=== PATIENT | female | born 1980 | race Caucasian/White ===

== ENCOUNTER 2019-03-28 18:00 | Inpatient (IN) | payer OTHER ==
[~2019-03-28] VITALS: Ht 154.9 cm; Wt 49.9 kg
[~2019-03-28 18:00] MED LIST: AUGMENTIN 875875 MG PO; CHROMAGEN FORTE1 TAB PO; LOPID600 M1 PO; MEDROL DOSEPAK4 MG PO; NKHM; POLYTRIM 1000010 M1 OP; PROVERA10 MG PO; VIBRAMYCIN100 MG PO; VICODIN 5/500 505 MG PO; ZITHROMAX Z PA250 MG PO
[2019-03-28 18:02] VITALS: BP 128/90
[2019-03-28 20:09] LABS: BASO # 0.1 10*3/uL (0.0-0.1); BASO % 0.5 % (0.0-1.0); EOS # 0.1 10*3/uL (0.0-0.4); EOS % 0.4 % (1.0-4.0); HEMATOCRIT 49.1 % (37.0-47.0); HEMOGLOBIN 16.8 g/dl (12.0-16.0); LYMPH # 2.4 10*3/uL (1.3-4.4); LYMPH % 12.4 % (27.0-41.0); MEAN CELL VOLUME 91.9 fl (81.0-99.0); MEAN CORPUSCULAR HGB 31.5 pg (27.0-31.0); MEAN CORPUSCULAR HGB CONC 34.2 g/dl (33.0-37.0); MEAN PLATELET VOLUME 9.7 fl (9.6-12.3); MONO # 0.7 10*3/uL (0.1-1.0); MONO % 3.7 % (3.0-9.0); NEUT # 15.8 10*3/uL (2.3-7.9); NEUT % 82.2 % (47.0-73.0); NUCLEATED RED BLOOD CELL 0.1 10*3/uL (0.0-0.0); NUCLEATED RED BLOOD CELL 0.3 % (0.0-0.0); PLATELET COUNT AUTOMATED 334 10*3/uL (130-400); RED BLOOD COUNT 5.34 10*6/uL (4.10-5.10); RED CELL DISTRI WIDTH 13.2 % (0-14.5); WHITE BLOOD COUNT 19.2 10*3/uL (4.8-10.8)
--- NOTE | 2019-03-28 20:23 | NUR ---
lactic @ 2.1 per lab juan m row[facility] notified.
--- NOTE | 2019-03-28 20:24 | NUR ---
PT PROVIDED LUNCH BOX AN ADDITIONAL FLUIDS REQUESTED,SAFETY PRECAUTIONS INTACT AND CALL LIGHT WITHIN REACH,FAMILY @ BEDSIDE.
[2019-03-28 21:06] VITALS: BP 133/84
[2019-03-28 21:18] LABS: BILIRUBIN NEGATIVE (NEGATIVE); BLOOD 1+ (NEGATIVE); CLARITY CLOUDY (CLEAR); COLOR YELLOW (YELLOW); GLUCOSE NEGATIVE (NEGATIVE); KETONE TRACE (NEGATIVE); LEUKO ESTERASE NEGATIVE (NEGATIVE); NITRITE NEGATIVE (NEGATIVE); SPECIFIC GRAVITY 1.015 (1.005-1.030); UROBILINOGEN 0.2 E.U./dl (0.2-1.0)
[2019-03-28 21:25] LABS: EPITHELIAL CELLS 31-40
[2019-03-28 21:26] LABS: BACTERIA TRACE
--- NOTE | 2019-03-28 21:31 | NUR ---
INFLUENZA SWAB COLLECTED, LABELED AND SENT TO LAB BY JACKELYN HU.
[2019-03-28 21:47] LABS: ALBUMIN 3.4 gm/dl (3.1-4.5); ALKALINE PHOSPHATASE 71 U/L (45-117); BUN 7 mg/dl (7-24); CHLORIDE 105 mmol/L (98-107); CREATININE 0.66 mg/dL (0.55-1.02); POTASSIUM 4.3 mmol/L (3.5-5.1); SGOT/AST 24 IU/L (3-35); SGPT/ALT 15 U/L (12-78); SODIUM 137 mmol/L (136-145); TOTAL PROTEIN 7.4 gm/dL (6.4-8.2)
[2019-03-28 22:14] LABS: INTERNATIONAL NORM RATIO 0.9 (2.0-3.5)
[2019-03-29 06:19] LABS: HEMATOCRIT 41.2 % (37.0-47.0); HEMOGLOBIN 14.8 g/dl (12.0-16.0); MEAN CELL VOLUME 93.6 fl (81.0-99.0); MEAN CORPUSCULAR HGB 33.6 pg (27.0-31.0); MEAN CORPUSCULAR HGB CONC 35.9 g/dl (33.0-37.0); MEAN PLATELET VOLUME 9.7 fl (9.6-12.3); PLATELET COUNT AUTOMATED 277 10*3/uL (130-400); RED CELL DISTRI WIDTH 12.8 % (0-14.5); WHITE BLOOD COUNT 14.3 10*3/uL (4.8-10.8)
[2019-03-29 06:34] LABS: ALBUMIN 3.1 gm/dl (3.1-4.5); ALKALINE PHOSPHATASE 68 U/L (45-117); BUN 9 mg/dl (7-24); CHLORIDE 109 mmol/L (98-107); CREATININE 0.69 mg/dL (0.55-1.02); PHOSPHOROUS 2.3 mg/dL (2.5-4.9); POTASSIUM 4.2 mmol/L (3.5-5.1); SGOT/AST 19 IU/L (3-35); SGPT/ALT 19 U/L (12-78); SODIUM 141 mmol/L (136-145); TOTAL PROTEIN 7.2 gm/dL (6.4-8.2)
[2019-03-29 06:38] LABS: CHOLESTEROL 223 mg/dL (<200); HDL CHOLESTEROL 16 mg/dl (40-60); TRIGLYCERIDES 1868 mg/dl (<150)
[2019-03-29 06:45] LABS: THYROID STIM HORMONE (HS) 0.408 uIU/ml (0.358-4.75)
[2019-03-29 06:49] VITALS: BP 117/61
[2019-03-29 06:57] LABS: PLATELET SUFFICIENCY NORMAL (NORMAL); TOTAL CELLS COUNTED 100 #CELLS
--- NOTE | 2019-03-29 07:10 | NUR ---
report received from tire repairman rn.
[2019-03-29 07:43] VITALS: BP 134/79
--- NOTE | 2019-03-29 08:07 | NUR ---
BED ASSIGNED FLOOR UNABLE TO ACCEPT PT AT THIS TIME. AWAITING RETURN CALL FOR ADMISSION.
[2019-03-29 08:18] LABS: VITAMIN D, 25-HYDROXY 12.7 ng/mL (30-100)
--- NOTE | 2019-03-29 09:00 | NUR ---
Accounting Officer in to talk to patient. Patient states lives at home with alone. There are few steps in the home. Physician: yue bonilla Pharmacy: [facility] health services: none Patient's level of ADLs: INDEPENDENT Patient has working utilities: all working DME: none Follow-up physician's appointment after d/c: will be made by hospitalist nurse director upon discharge Does patient want to access PORTAL?: no Discharge plan discussed with patient, she lives at home alone, she is independent in adls and ambulation, works, drives, she will be returing home when able and denies any home needs. BERNABE RICK
[2019-03-29 09:30] VITALS: BP 142/78
--- NOTE | 2019-03-29 09:59 | NUR ---
A 38, admitted to , under the services of LORRI Childs DO with a diagnosis of SEVERE SEPSIS. Chief complaint is COUGH, CONGESTION, CHEST PAIN. Patient arrived via wheel chair from ER. Monitor applied. Initial assessment completed. Vital signs taken and recorded. LORRI CHILDS DO notified of admission to the unit. Orders received. See assessment for past medical history, medications and allergies. Patient and/or family oriented to unit. [facility] Clothing/patient valuable form completed. ROSE LEARY
[2019-03-29 12:00] VITALS: BP 138/77
--- NOTE | 2019-03-29 15:30 | NUR ---
ASSUMED CARE FOR THIS PT AT THIS TIME. VISITORS AT BEDSIDE. CALL LIGHT IN REACH.
[2019-03-29 16:00] VITALS: BP 120/64; BP 138/82
--- NOTE | 2019-03-29 19:59 | NUR ---
DR. SPANGLER NOTIFIED OF PT'S ELEVATED TRIGLYCERIDES. STATES THEY ARE AWARE AND BELIEVE IT IS FAMILIAL HYPERCHOLESTEROLEMIA.
[2019-03-29 20:00] VITALS: BP 147/83
--- NOTE | 2019-03-29 22:17 | NUR ---
PT MEDICATED W/ZOFRAN FOR C/O NAUSEA. WILL MONITOR FOR EFFECTIVENESS.
[2019-03-30] VITALS: BP 128/71
--- NOTE | 2019-03-30 | NUR ---
RESTING IN BED WITH EYES CLOSED. IV FLUIDS INFUSING ORDERED. NO DISTRESS NOTED; CALL LIGHT WITHIN REACH.
--- NOTE | 2019-03-30 06:00 | NUR ---
AROUSES EASILY; VOICES NO C/O. CALL LIGHT WITHIN REACH.
[2019-03-30 06:24] LABS: BASO # 0.1 10*3/uL (0.0-0.1); BASO % 0.3 % (0.0-1.0); HEMATOCRIT 40.3 % (37.0-47.0); HEMOGLOBIN 13.5 g/dl (12.0-16.0); LYMPH % 9.6 % (27.0-41.0); MEAN CORPUSCULAR HGB 32.5 pg (27.0-31.0); MEAN CORPUSCULAR HGB CONC 33.5 g/dl (33.0-37.0); MEAN PLATELET VOLUME 9.8 fl (9.6-12.3); MONO # 0.8 10*3/uL (0.1-1.0); MONO % 3.8 % (3.0-9.0); NEUT % 85.1 % (47.0-73.0); PLATELET COUNT AUTOMATED 284 10*3/uL (130-400); RED BLOOD COUNT 4.16 10*6/uL (4.10-5.10); RED CELL DISTRI WIDTH 13.2 % (0-14.5); WHITE BLOOD COUNT 21.1 10*3/uL (4.8-10.8)
[2019-03-30 06:29] LABS: BUN 9 mg/dl (7-24); CHLORIDE 112 mmol/L (98-107); CREATININE 0.53 mg/dL (0.55-1.02); POTASSIUM 4.4 mmol/L (3.5-5.1); SODIUM 143 mmol/L (136-145)
[2019-03-30 06:49] LABS: MEAN CELL VOLUME 96.9 fl (81.0-99.0)
[2019-03-30 08:30] VITALS: BP 124/80
--- NOTE | 2019-03-30 09:00 | NUR ---
case management visits with patient, she is hoping to return home today, she denies any home needs
[2019-03-30 09:34] VITALS: BP 124/82
--- NOTE | 2019-03-30 11:55 | NUR ---
patient instructed on flutter valve.
[2019-03-30 12:00] VITALS: BP 113/65
[2019-03-30 16:00] VITALS: BP 135/82
[2019-03-30 20:00] VITALS: BP 129/68
--- NOTE | 2019-03-30 22:54 | NUR ---
PRN TYLENOL ADMINISTERED FOR PT C/O H/A RATED A 4/10 ON THE PAIN SCALE. WILL CONTINUE TO MONITOR AND REASSESS. NO OTHER COMPLAINTS AT THIS TIME. CALL LIGHT IN REACH.
[2019-03-31] VITALS: BP 136/83
[2019-03-31 06:35] LABS: HEMATOCRIT 40.6 % (37.0-47.0); MEAN CORPUSCULAR HGB 32.3 pg (27.0-31.0); MEAN CORPUSCULAR HGB CONC 34.5 g/dl (33.0-37.0); MEAN PLATELET VOLUME 9.2 fl (9.6-12.3); PLATELET COUNT AUTOMATED 292 10*3/uL (130-400); RED BLOOD COUNT 4.33 10*6/uL (4.10-5.10); RED CELL DISTRI WIDTH 12.5 % (0-14.5)
[2019-03-31 06:42] LABS: MEAN CELL VOLUME 93.8 fl (81.0-99.0)
[2019-03-31 07:12] LABS: PLATELET SUFFICIENCY NORMAL (NORMAL); TOTAL CELLS COUNTED 100 #CELLS
--- NOTE | 2019-03-31 08:30 | NUR ---
Patient resting quietly with no c/o discomfort. Respirations easy and regular. Vital signs stable. No overt distress. TARUUS SINGH R
[2019-03-31] MEDS ORDERED: DOXYCYCLINE100 M3 PO (09:53)
[2019-03-31] MEDS ORDERED: VITAMIN D5000 UNI1 PO (09:53)
[2019-03-31] MEDS ORDERED: PREDNISONE10 MG PO (09:53)
[2019-03-31] MEDS ORDERED: NICODERM CQ1 EAC2 T (11:23)
--- NOTE | 2019-03-31 11:39 | NUR ---
Discharge instructions reviewed with patient/family. Patient receptive and verbalizes understanding. Follow-up care arranged. Written instructions given to patient/family. TAURUS SINGH
== END 2019-03-31 11:39 | disposition home or self-care (01) | DRG 871 ==
LOC: ED 18:00 → 4E 20:56 → EDHOLD 20:56 → 4E 03-29 08:43
PROVIDERS: Internal Medicine; Physician Assistant; Registered Nurse; Student in an Organized Health Care Education/Training Program; ADMIT Internal Medicine
DX: A41.9 Sepsis, unspecified organism (principal); J18.9 Pneumonia, unspecified organism; E87.2 Acidosis; R65.20 Severe sepsis without septic shock; N76.0 Acute vaginitis; R73.9 Hyperglycemia, unspecified; D72.810 Lymphocytopenia; E78.1 Pure hyperglyceridemia; B96.89 Other specified bacterial agents as the cause of diseases classified elsewhere; F17.210 Nicotine dependence, cigarettes, uncomplicated; Z71.6 Tobacco abuse counseling; Z79.899 Other long term (current) drug therapy; Z83.3 Family history of diabetes mellitus; Z80.8 Family history of malignant neoplasm of other organs or systems

== ENCOUNTER 2020-06-07 11:33 | Emergency (ER) | payer OTHER ==
[~2020-06-07] VITALS: Ht 154.9 cm; Wt 54.4 kg
[~2020-06-07 11:33] MED LIST changes: +DOXYCYCLINE100 M3 PO; +NICODERM CQ1 EAC2 T; +PREDNISONE10 MG PO; +VITAMIN D5000 UNI1 PO
[2020-06-07] MEDS ORDERED: FENOFIBRATE160 MG PO (11:47)
[2020-06-07] MEDS ORDERED: OMEGA-3-ACID ETH1 GM PO (11:48)
[2020-06-07 11:53] VITALS: BP 142/78
== END 2020-06-07 12:52 | disposition home or self-care (01) ==
LOC: ED 11:33
DX: S61.211A Laceration without foreign body of left index finger without damage to nail, initial encounter (principal); F17.200 Nicotine dependence, unspecified, uncomplicated; Z79.899 Other long term (current) drug therapy; X58.XXXA Exposure to other specified factors, initial encounter; Y93.89 Activity, other specified; Y92.89 Other specified places as the place of occurrence of the external cause; Y99.8 Other external cause status

== ENCOUNTER 2020-07-24 17:23 | Inpatient (IN) | payer OTHER ==
[~2020-07-24] VITALS: Ht 155 cm; Wt 54.4 kg
[~2020-07-24 17:23] MED LIST changes: +FENOFIBRATE160 MG PO; +OMEGA-3-ACID ETH1 GM PO
[2020-07-24 17:31] VITALS: BP 124/85
[2020-07-24 19:07] LABS: ALBUMIN 3.7 gm/dl (3.1-4.5); ALKALINE PHOSPHATASE 75 U/L (45-117); BUN 9 mg/dl (7-24); CHLORIDE 106 mmol/L (98-107); LIPASE 460 U/L (73-393); SODIUM 136 mmol/L (136-145); TOTAL PROTEIN 8.4 gm/dL (6.4-8.2)
[2020-07-24 19:10] LABS: MEAN CORPUSCULAR HGB CONC 34.8 g/dl (33.0-37.0); MEAN PLATELET VOLUME 10.2 fl (9.6-12.3)
[2020-07-24 19:16] LABS: HEMATOCRIT 43.7 % (37.0-47.0); MEAN CELL VOLUME 89.2 fl (81.0-99.0); NUCLEATED RED BLOOD CELL 0.3 10*3/uL (0.0-0.0); NUCLEATED RED BLOOD CELL 1.7 % (0.0-0.0); PLATELET COUNT AUTOMATED 312 10*3/uL (130-400); RED CELL DISTRI WIDTH 13.2 % (0-14.5); WHITE BLOOD COUNT 16.7 10*3/uL (4.8-10.8)
[2020-07-24 19:17] LABS: SGOT/AST 60 IU/L (3-35); SGPT/ALT 29 U/L (12-78)
[2020-07-24 19:33] LABS: TOTAL CELLS COUNTED 100 #CELLS
[2020-07-24 19:34] LABS: PLATELET SUFFICIENCY NORMAL (NORMAL)
[2020-07-24 21:44] LABS: BILIRUBIN Negative (Negative); BLOOD Negative (Negative); CLARITY Clear (Clear); COLOR Yellow (Yellow); GLUCOSE Negative (Negative); KETONE Trace (Negative); LEUKO ESTERASE Negative (Negative); NITRITE Negative (Negative); PH 7.5 (4.5-8.0); SPECIFIC GRAVITY >= 1.030 (1.001-1.030); UROBILINOGEN 0.2 E.U./dl (0.0-1.0)
[2020-07-24 21:55] VITALS: BP 103/66
[2020-07-24 21:56] LABS: EPITHELIAL CELLS 21-30; RBC 0-2 rbc/hpf (0-2); WBC 0-2 wbc/hpf (0-5)
[2020-07-24 21:57] LABS: BACTERIA TRACE
[2020-07-24 22:10] VITALS: BP 111/68
--- NOTE | 2020-07-24 22:20 | NUR ---
PT ARRIVED TO THE FLOOR AT 2210HRS, CHERY REPORT WAS TAKEN FROM ASUNCION. PT ORIENTATED TO ROOM AND CALL LIGHT.
--- NOTE | 2020-07-25 02:45 | NUR ---
24 HR chart check completed.
[2020-07-25 06:37] LABS: BASO # 0.1 10*3/uL (0.0-0.1); BASO % 0.5 % (0.0-1.0); EOS # 0.2 10*3/uL (0.0-0.4); EOS % 1.8 % (1.0-4.0); HEMATOCRIT 34.2 % (37.0-47.0); LYMPH # 2.2 10*3/uL (1.3-4.4); LYMPH % 17.7 % (27.0-41.0); MEAN CELL VOLUME 91.4 fl (81.0-99.0); MEAN CORPUSCULAR HGB 32.9 pg (27.0-31.0); MEAN PLATELET VOLUME 9.5 fl (9.6-12.3); MONO # 0.6 10*3/uL (0.1-1.0); MONO % 4.6 % (3.0-9.0); NEUT # 9.2 10*3/uL (2.3-7.9); PLATELET COUNT AUTOMATED 220 10*3/uL (130-400); RED BLOOD COUNT 3.74 10*6/uL (4.10-5.10); WHITE BLOOD COUNT 12.3 10*3/uL (4.8-10.8)
--- NOTE | 2020-07-25 06:40 | NUR ---
PT REPORTS ABD PAIN 6/10 IN SEVERITY. MEDICATED PER THE MAR
[2020-07-25 07:09] LABS: ALBUMIN 2.8 gm/dl (3.1-4.5); ALKALINE PHOSPHATASE 56 U/L (45-117); BUN 6 mg/dl (7-24); CHLORIDE 112 mmol/L (98-107); CREATININE 0.64 mg/dL (0.55-1.02); SGOT/AST 8 IU/L (3-35); SGPT/ALT 22 U/L (12-78); SODIUM 141 mmol/L (136-145); TOTAL PROTEIN 6.1 gm/dL (6.4-8.2)
[2020-07-25 07:15] LABS: VITAMIN D, 25-HYDROXY 7.5 ng/mL (30-100)
[2020-07-25 07:18] LABS: POTASSIUM 3.2 mmol/L (3.5-5.1)
[2020-07-25 07:19] LABS: CHOLESTEROL 205 mg/dL (<200); HDL CHOLESTEROL 21 mg/dl (40-60)
[2020-07-25 07:20] LABS: TRIGLYCERIDES 1468 mg/dl (<150)
[2020-07-25 07:21] LABS: THYROID STIM HORMONE (HS) 0.273 uIU/ml (0.358-4.75)
[2020-07-25 07:25] LABS: INTERNATIONAL NORM RATIO 0.9 (2.0-3.5)
[2020-07-25 07:27] LABS: ACT PARTIAL THROMBO TIME 29.4 SECONDS (20.0-32.1)
[2020-07-25 08:00] VITALS: BP 98/47
--- NOTE | 2020-07-25 08:18 | NUR ---
Pt taken off floor for ultrasound.
--- NOTE | 2020-07-25 08:57 | NUR ---
Medicated with morphine iv per prn order for complaints of abdominal pain.
--- NOTE | 2020-07-25 09:40 | NUR ---
Pt is resting comfortably. States morphine helped pain.
--- NOTE | 2020-07-25 09:42 | NUR ---
SUPERVISOR POWDERED METAL-S in to talk to patient. Patient states lives at home alone. There are a few steps in the home. Physician: does not have one Pharmacy: [facility] health services: no Patient's level of ADLs: INDEPENDENT Patient has working utilities: Yes DME: no Follow-up physician's appointment after d/c: Will need Does patient want to access PORTAL?: Yes Discharge plan: Patient lives independently and is currently employed. Patient states that she was admitted to [facility] in 05/06 due to pancreatitis. At that time, she discharged to home without any needs. Pt anticipates the same upon current discharge. Discussed pt's need to become established with a PCP. Offered resident clinic to pt as an option. Will plan to meet with pt again to provide additional list of local PCPs. BREE CALLEJAS
--- NOTE | 2020-07-25 10:11 | NUR ---
storage garage attendant dc per order.
[2020-07-25 12:00] VITALS: BP 92/55
--- NOTE | 2020-07-25 12:01 | NUR ---
Nutritional Support Services Note; Instructed pt on diet for pancreatitis and hypertryglycermia. Low fat diet copy given. All questions were answered. She has a very good understanding of the diet and is very eager to comply. She asked appropriate questions. Encouraged follow up if needed. Monse Stubbs Rdn Ld
--- NOTE | 2020-07-25 15:32 | NUR ---
Medicated with norco per prn order for complaints of abdominal pain.
[2020-07-25 16:00] VITALS: BP 100/59
[2020-07-25 20:00] VITALS: BP 107/56
--- NOTE | 2020-07-25 21:14 | NUR ---
PATIENT LAYING IN BED. C/O ABDOMINAL PAIN BUT DENIES NEED FOR PAIN MEDICATION. RATES 5/10. RESPIRATIONS EASY, NON LABORED. NO OTHER COMPLAINTS VOICED AT THIS TIME. IV FLUIDS INFUSING. BED IN LOWEST POSITION,CALL LIGHT WITHIN REACH. WILL CONTINUE TO MONITOR.
--- NOTE | 2020-07-25 21:56 | NUR ---
MEDICATED WITH PRN NORCO FOR CO ABDOMINAL PAIN AND PRN ZOFRAN FOR CO NAUSEA. NURSE TO ASSESS EFFECTIVENESS.
--- NOTE | 2020-07-25 22:56 | NUR ---
PER PATIENT CONY AND STORM EFFECTIVE.
--- NOTE | 2020-07-25 23:00 | NUR ---
ASSUMED CARE OF PATIENT AT THIS TIME. DENIES ANY NEEDS. STATES NO NAUSEA AT THIS TIME AND PAIN IS CONTROLLED. ASSESSMENT COMPLETE. RESPS WNL. CALL LIGHT WITHIN REACH.
[2020-07-26] VITALS: BP 105/54
--- NOTE | 2020-07-26 00:04 | NUR ---
24 HR chart check completed.
--- NOTE | 2020-07-26 01:31 | NUR ---
PRN RESTORIL GIVEN FOR CO TROUBLE SLEEPING.
[2020-07-26 06:59] LABS: BASO # 0.1 10*3/uL (0.0-0.1); BASO % 0.9 % (0.0-1.0); EOS # 0.4 10*3/uL (0.0-0.4); EOS % 4.9 % (1.0-4.0); HEMATOCRIT 34.7 % (37.0-47.0); LYMPH # 2.3 10*3/uL (1.3-4.4); LYMPH % 30.6 % (27.0-41.0); MEAN CELL VOLUME 92.3 fl (81.0-99.0); MEAN CORPUSCULAR HGB 30.9 pg (27.0-31.0); MEAN CORPUSCULAR HGB CONC 33.4 g/dl (33.0-37.0); MEAN PLATELET VOLUME 9.8 fl (9.6-12.3); MONO # 0.4 10*3/uL (0.1-1.0); MONO % 5.8 % (3.0-9.0); NEUT # 4.3 10*3/uL (2.3-7.9); NEUT % 57.4 % (47.0-73.0); PLATELET COUNT AUTOMATED 204 10*3/uL (130-400); RED BLOOD COUNT 3.76 10*6/uL (4.10-5.10); RED CELL DISTRI WIDTH 12.9 % (0-14.5); WHITE BLOOD COUNT 7.5 10*3/uL (4.8-10.8)
[2020-07-26 07:10] LABS: BUN 3 mg/dl (7-24); CHLORIDE 112 mmol/L (98-107); CREATININE 0.49 mg/dL (0.55-1.02); POTASSIUM 3.5 mmol/L (3.5-5.1); SODIUM 140 mmol/L (136-145)
[2020-07-26 07:55] VITALS: BP 88/47
--- NOTE | 2020-07-26 09:26 | NUR ---
Medicated with norco per prn order for complaints of abdominal pain. Rates pain 4/10.
[2020-07-26 10:10] VITALS: BP 112/78
--- NOTE | 2020-07-26 10:10 | NUR ---
Dr. Vieyra requested a repeat bp result of 112/78 manual.
--- NOTE | 2020-07-26 10:20 | NUR ---
States that pain medication effective.
[2020-07-26 12:00] VITALS: BP 105/58
[2020-07-26 16:00] VITALS: BP 106/66
--- NOTE | 2020-07-26 17:56 | NUR ---
Medicated with vicodin per prn order for complaints of abdominal pain. States pain is across entire abdomen rated 6/10.
[2020-07-26 20:00] VITALS: BP 110/63
--- NOTE | 2020-07-26 23:20 | NUR ---
2318 PT C/O ABD DISCOMFORT/GENERALIZED DISCOMFORT AND SLEEP. 4/10 PAIN SCALE. ADMINISTERED PRN NORCO AND RESTORIL PER STANDING ORDER.
[2020-07-27] VITALS: BP 133/71
--- NOTE | 2020-07-27 01:45 | NUR ---
CLIENT PRN NORCO WAS EFFECTIVE. NO S/S DISCOMFORT AT THIS TIME.
[2020-07-27 06:34] LABS: BASO # 0.1 10*3/uL (0.0-0.1); BASO % 1.3 % (0.0-1.0); EOS # 0.3 10*3/uL (0.0-0.4); EOS % 4.6 % (1.0-4.0); HEMATOCRIT 33.3 % (37.0-47.0); LYMPH # 2.7 10*3/uL (1.3-4.4); LYMPH % 43.9 % (27.0-41.0); MEAN CORPUSCULAR HGB CONC 33.3 g/dl (33.0-37.0); MEAN PLATELET VOLUME 9.4 fl (9.6-12.3); MONO # 0.4 10*3/uL (0.1-1.0); MONO % 5.9 % (3.0-9.0); NEUT # 2.7 10*3/uL (2.3-7.9); PLATELET COUNT AUTOMATED 198 10*3/uL (130-400); RED BLOOD COUNT 3.58 10*6/uL (4.10-5.10); RED CELL DISTRI WIDTH 12.4 % (0-14.5); WHITE BLOOD COUNT 6.1 10*3/uL (4.8-10.8)
[2020-07-27 06:47] LABS: BUN 5 mg/dl (7-24); CHLORIDE 112 mmol/L (98-107); CREATININE 0.48 mg/dL (0.55-1.02); POTASSIUM 3.6 mmol/L (3.5-5.1); SODIUM 143 mmol/L (136-145)
[2020-07-27 08:00] VITALS: BP 113/64
[2020-07-27] MEDS ORDERED: PHARMASSURE V500 MCG PO (11:31)
[2020-07-27] MEDS ORDERED: VITAMIN D350 MC2 PO (11:31)
[2020-07-27] MEDS ORDERED: LIPITOR20 MG PO (11:31)
[2020-07-27] MEDS ORDERED: OMEGA-3-ACID ETH1 GM PO (11:31)
[2020-07-27] MEDS ORDERED: FENOFIBRATE160 MG PO (11:31)
[2020-07-27 12:00] VITALS: BP 130/76
== END 2020-07-27 13:30 | disposition home or self-care (01) | DRG 871 ==
LOC: ED 17:23 → 5E 21:10 → EDHOLD 21:10 → 5E 21:49
PROVIDERS: Family Medicine; Hospitalist; Physician Assistant; ADMIT Internal Medicine; ATTEND Internal Medicine
DX: A41.9 Sepsis, unspecified organism (principal); K85.90 Acute pancreatitis without necrosis or infection, unspecified; E78.1 Pure hyperglyceridemia; F17.210 Nicotine dependence, cigarettes, uncomplicated; K29.70 Gastritis, unspecified, without bleeding; E78.00 Pure hypercholesterolemia, unspecified; R74.01 Elevation of levels of liver transaminase levels; Z79.899 Other long term (current) drug therapy; Z71.6 Tobacco abuse counseling; Z83.3 Family history of diabetes mellitus

== ENCOUNTER → 2020-08-18 | Outpatient (CLI) | payer OTHER ==
[~2020-08-18] MED LIST changes: +LIPITOR20 MG PO; +PHARMASSURE V500 MCG PO; +VITAMIN D350 MC2 PO
== END | disposition home or self-care (01) ==
LOC: US 14:25
PROVIDERS: ATTEND Nurse Practitioner Women's Health
DX: N83.202 Unspecified ovarian cyst, left side (principal); N88.8 Other specified noninflammatory disorders of cervix uteri

== ENCOUNTER → 2020-11-26 | Outpatient (CLI) | payer OTHER | END | disposition home or self-care (01) | LOC: US 15:22 | PROVIDERS: ATTEND Nurse Practitioner Women's Health | DX: N88.8 Other specified noninflammatory disorders of cervix uteri (principal) ==

== ENCOUNTER 2021-09-21 17:07 | Emergency (ER) | payer OTHER ==
[~2021-09-21] VITALS: Ht 154.9 cm; Wt 59.0 kg
[2021-09-21 17:28] VITALS: BP 140/82
[2021-09-21 17:53] LABS: BILIRUBIN Negative (Negative); BLOOD Negative (Negative); CLARITY Clear (Clear); COLOR Yellow (Yellow); GLUCOSE Negative (Negative); KETONE Negative (Negative); LEUKO ESTERASE Negative (Negative); NITRITE Negative (Negative); PH 5.5 (4.5-8.0); SPECIFIC GRAVITY <= 1.005 (1.001-1.030); UROBILINOGEN 0.2 E.U./dl (0.0-1.0)
[2021-09-21 18:14] LABS: BACTERIA TRACE; EPITHELIAL CELLS 31-40; RBC 0-2 rbc/hpf (0-2); WBC 0-2 wbc/hpf (0-5)
== END 2021-09-21 19:20 | disposition home or self-care (01) ==
LOC: ED 17:07
PROVIDERS: Emergency Medicine
DX: R39.11 Hesitancy of micturition (principal); F17.200 Nicotine dependence, unspecified, uncomplicated; Z79.899 Other long term (current) drug therapy

== ENCOUNTER 2023-07-23 13:39 | Emergency (ER) | payer OTHER ==
[~2023-07-23] VITALS: Ht 154.9 cm; Wt 59.0 kg
[2023-07-23 13:46] VITALS: BP 140/87
[2023-07-23] MEDS ORDERED: PROZAC40 M1 PO (13:47)
[2023-07-23] MEDS ORDERED: MUSCLE RELAXER (13:48)
[2023-07-23] MEDS ORDERED: CYCLOBENZAPRINE5 M3 PO (15:11)
== END 2023-07-23 15:12 | disposition home or self-care (01) ==
LOC: ED 13:39
DX: M54.31 Sciatica, right side (principal); M19.90 Unspecified osteoarthritis, unspecified site; Z98.890 Other specified postprocedural states; F17.200 Nicotine dependence, unspecified, uncomplicated

== ENCOUNTER 2023-10-08 19:02 | Emergency (ER) | payer OTHER ==
[~2023-10-08] VITALS: Ht 154.9 cm; Wt 59.0 kg
[~2023-10-08 19:02] MED LIST changes: +CYCLOBENZAPRINE5 M3 PO; +MUSCLE RELAXER; +PROZAC40 M1 PO
[2023-10-08 19:10] VITALS: BP 150/68
[2023-10-08] MEDS ORDERED: ACETAMINOPHEN 325 MG TAB PO ONE (19:25)
[2023-10-08 19:46] LABS: MEAN CELL VOLUME 91.6 fl (81.0-99.0); MEAN PLATELET VOLUME 8.8 fl (9.6-12.3); PLATELET COUNT AUTOMATED 279 10*3/uL (130-400); RED BLOOD COUNT 4.04 10*6/uL (4.10-5.10); RED CELL DISTRI WIDTH 12.3 % (0-14.5)
[2023-10-08 20:18] LABS: BILIRUBIN Negative (Negative); BLOOD Trace-Intact (Negative); CLARITY Clear (Clear); COLOR Yellow (Yellow); GLUCOSE Negative (Negative); KETONE Trace (Negative); LEUKO ESTERASE Negative (Negative); NITRITE Negative (Negative); PH 5.5 (4.5-8.0); SPECIFIC GRAVITY 1.025 (1.001-1.030)
[2023-10-08 20:25] LABS: URINE AMPHETAMINES Negative (1000ng/ml); URINE BARBITURATES Negative (200ng/ml); URINE BENZODIAZEPINES Negative (200ng/ml); URINE CANNABINOIDS (THC) Negative (50ng/ml); URINE COCAINE Negative (300ng/ml); URINE METHADONE Negative (300ng/ml); URINE OPIATES Positive (300ng/ml); URINE PHENCYCLIDINE Negative (25ng/ml)
[2023-10-08 21:29] LABS: BACTERIA TRACE; MUCOUS 1+
[2023-10-08 21:39] LABS: ALKALINE PHOSPHATASE 65 U/L (46-116); LIPASE 70 U/L (12-53); POTASSIUM 3.6 mmol/L (3.4-5.1); SGPT/ALT 41 U/L (5-49); TOTAL PROTEIN 6.1 gm/dL (6.0-8.0)
[2023-10-08 22:03] LABS: MANUAL DIFF REFLEX YES
[2023-10-08 22:04] LABS: MEAN CORPUSCULAR HGB CONC 34.1 g/dl (33.0-37.0)
[2023-10-08 22:05] LABS: MEAN CORPUSCULAR HGB 31.2 pg (27.0-31.0)
[2023-10-08 22:15] LABS: BUN < 10 mg/dl (9-23)
[2023-10-08 22:27] LABS: ATYPICAL LYMPHS 1 % (0-0); BASOPHILS 2 % (0-1); PLATELET SUFFICIENCY NORMAL (NORMAL); TOTAL CELLS COUNTED 100 #CELLS
[2023-10-08 22:28] LABS: ROULEAUX SLIGHT
[2023-10-08] MEDS ORDERED: MIRALAX POWDER17 G1 PO (22:52)
== END 2023-10-08 23:12 | disposition home or self-care (01) ==
LOC: ED 19:02
PROVIDERS: Internal Medicine
DX: K59.00 Constipation, unspecified (principal); R11.2 Nausea with vomiting, unspecified; F17.200 Nicotine dependence, unspecified, uncomplicated; Z79.899 Other long term (current) drug therapy

== ENCOUNTER → 2023-10-26 | Outpatient (CLI) | payer OTHER ==
[~2023-10-26] MED LIST changes: +MIRALAX POWDER17 G1 PO
== END | disposition home or self-care (01) ==
LOC: MRI 00:21
PROVIDERS: ATTEND Family Medicine
DX: M51.37 Other intervertebral disc degeneration, lumbosacral region (principal); M54.41 Lumbago with sciatica, right side; M48.07 Spinal stenosis, lumbosacral region; M47.817 Spondylosis without myelopathy or radiculopathy, lumbosacral region; M25.551 Pain in right hip

== ENCOUNTER 2024-12-11 22:29 | Emergency (ER) | payer OTHER ==
[~2024-12-11] VITALS: Ht 154.9 cm; Wt 61.2 kg
[2024-12-11 22:49] VITALS: BP 162/85
[2024-12-11] MEDS ORDERED: Ketorolac Tromethamine 60 MG/2 ML VIAL IM ONE (23:00)
== END 2024-12-11 23:16 | disposition home or self-care (01) ==
LOC: ED 22:29
DX: G57.91 Unspecified mononeuropathy of right lower limb (principal); Z98.890 Other specified postprocedural states; Z79.899 Other long term (current) drug therapy; Z87.891 Personal history of nicotine dependence